=== PATIENT | female | born 1980 | race Caucasian/White ===

== ENCOUNTER 2022-08-09 09:11 | Outpatient (CLI) | payer OTHER, SELFPAY | END 2022-08-09 09:12 | disposition home or self-care (01) | LOC: NFLDREF 08-10 10:41 | PROVIDERS: Visit Provider Obstetrics & Gynecology | DX: Z13.0 Encounter for screening for diseases of the blood and blood-forming organs and certain disorders involving the immune mechanism (principal); Z13.1 Encounter for screening for diabetes mellitus; Z13.29 Encounter for screening for other suspected endocrine disorder; Z13.6 Encounter for screening for cardiovascular disorders | CPT/HCPCS: 80061; 82947; 84443 ==

== ENCOUNTER 2023-09-14 10:46 | Outpatient (CLI) | payer OTHER, SELFPAY ==
--- NOTE | 2023-09-14 10:45 | CRLHL7_ITS ---
For Patients: As a result of the Century Cures Act, medical imaging exams and procedure reports are released immediately into your electronic medical record. You may view this report before your referring provider. If you have questions, please contact your health care provider. BILATERAL SCREENING MAMMOGRAM WITH COMPUTER-AIDED DETECTION AND TOMOSYNTHESIS TECHNIQUE: CC and MLO views were obtained. These mammographic images have been obtained using full-field digital technique. These mammographic images were interpreted with the benefit of computer-aided detection. Breast Tomosynthesis was used in this interpretation. COMPARISON FILM: 08/30/22, 07/08/21, 05/19/20. FINDINGS: The breasts are heterogeneously dense, which may obscure small masses IMPRESSION: There is no radiographic evidence for malignancy. ASSESSMENT: BI-RADS Category 1: Negative RECOMMENDATION: Routine screening mammogram in 1 year. A lay language report of this examination will be provided to the patient. Koffi Candelario M.D. Diagnostic Radiologist [email or web address] [email or web address]/romy Transcribed: 3:06 [email or web address] [email or web address]/Dictated by: Koffi Candelario MD @ 09/16/2023 12:43:00 PM (Electronically Signed)
== END 2023-09-14 10:47 | disposition home or self-care (01) ==
LOC: MAMMO 10:47
PROVIDERS: Visit Provider Obstetrics & Gynecology
DX: Z12.31 Encounter for screening mammogram for malignant neoplasm of breast (principal); R92.2 Inconclusive mammogram
CPT/HCPCS: 77063; 77067

== ENCOUNTER 2023-12-27 08:45 | Outpatient (CLI) | payer OTHER, SELFPAY ==
--- NOTE | 2023-12-27 10:13 | W.ANESCHARGE ---
Anesthesia Charges Start Date/Time Anesthesia Start Date: 12/27/23 Anesthesia Start Time: 09:40 Stop Date/Time Anesthesia Stop Date: 12/27/23 Anesthesia Stop Time: 10:10
--- NOTE | 2023-12-27 10:42 | W.ANESCHARGE ---
Anesthesia Charges Start Date/Time Anesthesia Start Date: 12/27/23 Anesthesia Start Time: 09:40 Stop Date/Time Anesthesia Stop Date: 12/27/23 Anesthesia Stop Time: 10:10
== END 2023-12-27 08:46 | disposition home or self-care (01) ==
LOC: OP CLINIC 08:45
PROVIDERS: Visit Provider Surgery
DX: Z12.11 Encounter for screening for malignant neoplasm of colon (principal); D12.3 Benign neoplasm of transverse colon; K57.30 Diverticulosis of large intestine without perforation or abscess without bleeding; Z80.0 Family history of malignant neoplasm of digestive organs
CPT/HCPCS: 00811; 45385; 88305; J2704

== ENCOUNTER 2025-02-06 09:12 | Outpatient (CLI) | payer OTHER, SELFPAY ==
--- NOTE | 2025-02-06 09:15 | CRLHL7_ITS ---
For Patients: As a result of the Century Cures Act, medical imaging exams and procedure reports are released immediately into your electronic medical record. You may view this report before your referring provider. If you have questions, please contact your health care provider. INDICATION: BILATERAL SCREENING MAMMOGRAM, ASYMPTOMATIC 44 Y/O FEMALE COMPARISON: 09/24/2023, 08/30/2022, 07/08/2021 TECHNIQUE: Digital mammogram in CC and MLO projections including computer-aided detection (CAD) and tomosynthesis. BREAST COMPOSITION: The breasts are heterogeneously dense, which may obscure small masses. FINDINGS: No suspicious findings. ASSESSMENT: BI-RADS 1 Negative RECOMMENDATION: Annual screening mammogram. A lay language report of this examination will be provided to the patient. Dictated by: Koffi Candelario MD @ 02/06/2025 11:20:00 (Electronically Signed)
== END 2025-02-06 09:13 | disposition home or self-care (01) ==
LOC: MAMMO 09:12
PROVIDERS: Visit Provider Obstetrics & Gynecology
DX: Z12.31 Encounter for screening mammogram for malignant neoplasm of breast (principal); R92.333 Mammographic heterogeneous density, bilateral breasts
CPT/HCPCS: 77063; 77067